=== PATIENT | female | born 1945 | race Caucasian/White ===

== ENCOUNTER 2020-01-05 08:17 | Emergency (ER) | payer MEDICARE, OTHER, SELFPAY ==
--- NOTE | 2020-01-05 08:24 | ED.GENADULT ---
HPI - General Adult General Chief complaint: Urogenital-Female Stated complaint: Possible UTI Time Seen by Provider: 01/05/20 08:45 Source: patient Mode of arrival: ambulatory Limitations: no limitations History of Present Illness HPI narrative: 74-year-old female patient presents to the [facility] with complaints of urinary symptoms that started yesterday. Patient states she has had pain and burning with urination, increased frequency and urgency as well as some bilateral low back pain. Denies any fevers, nausea, vomiting or diarrhea. Denies any abdominal pain. Related Data Home Medications Medication Instructions Recorded Confirmed amlodipine [Norvasc] 10 mg PO DAILY 01/05/20 01/05/20 lisinopril [Zestril] 40 mg PO DAILY 01/05/20 01/05/20 simvastatin [Zocor] 10 mg PO DAILY 01/05/20 01/05/20 Allergies Allergy/AdvReac Type Severity Reaction Status Date / Time No Known Allergies Allergy Verified 01/05/20 08:42 Review of Systems Review of Systems: Narrative: CONSTITUTIONAL: Denies fever, chills, or sweats. EYES: Denies visual changes, redness, or discharge. ENT: Denies rhinorrhea, congestion, sore throat, or otalgia. CARDIOVASCULAR: Denies chest pain, palpitations, or edema. RESPIRATORY: Denies cough or dyspnea. GASTROINTESTINAL: Denies abdominal pain, nausea, vomiting, or diarrhea. GENITOURINARY: Denies dysuria or hematuria. Positive pain with urination, urgency and frequency. SKIN: Denies rash or itching. MUSCULOSKELETAL: Denies back pain, joint pain, or myalgia. NEUROLOGIC: Denies headache, numbness, or weakness. PSYCHIATRIC: Denies anxiety or depression. PMFSH Social History Social History Gender identity (if verbalized by the patient): Female Comments At the time of my signature I agree with nursing past medical history, surgical, social, and family history. There is no relevant family history pertinent to the presenting complaint. Exam Narrative: Exam Narrative: GENERAL: Well-appearing, well-nourished, and in no acute distress. HEAD: Normocephalic, atraumatic. EYES: PERRLA and EOMI. ENT: Nares clear, no rhinorrhea or epistaxis. Mucous membranes moist. NECK: Supple. No lymphadenopathy CHEST: Clear to auscultation. No respiratory distress. HEART: Regular rate and rhythm. No murmur heard. Normal peripheral pulses. ABDOMEN: Soft, nontender, nondistended, normal active bowel sounds. No CVA tenderness on percussion. EXTREMITIES: Normal range of motion. No edema. SKIN: Warm, dry, no rash. NEURO: No focal deficits. Alert and oriented x3. Course Vital Signs Vital signs: Vital Signs Temperature 36.4 C 01/05/20 08:35 Pulse Rate 91 01/05/20 08:35 Respiratory Rate 16 01/05/20 08:35 Blood Pressure 137/75 01/05/20 08:35 Pulse Oximetry 98 01/05/20 08:35 Temperature 36.4 C 01/05/20 08:35 Pulse Rate 91 01/05/20 08:35 Respiratory Rate 16 01/05/20 08:35 Blood Pressure 137/75 01/05/20 08:35 Pulse Oximetry 98 01/05/20 08:35 Vital signs reviewed. Medical Decision Making Differential Diagnosis Differential Diagnosis: Differential diagnosis: Uncomplicated lower UTI, uncomplicated UTI, pyelonephritis Discussed with patient that there is some leukocytes on her urine dip that is suggestive a urinary tract infection and given her symptoms I think that we should go ahead and start her on antibiotics today. Discussed with patient that she should also increase her fluid intake and may take Tylenol ibuprofen as needed for the pain. Discussed with patient if her symptoms do not improve that she needs call and follow-up with her primary doctor. Discussed patient that we will send her urine off to the lab for culture and if the culture comes back requiring a different type of antibiotic we will call her and place her on a different type of antibiotics but if she does not hear from us she needs to continue taking the antibiotic as descri
[2020-01-05 08:35] VITALS: BP 137/75; PULSE 91; RESP 16; TEMP 36.4; O2SAT 98
== END 2020-01-05 08:53 | disposition home or self-care (01) ==
PROVIDERS: Emergency Provider Nurse Practitioner Family
DX: N30.00 Acute cystitis without hematuria (principal); E78.00 Pure hypercholesterolemia, unspecified; I10 Essential (primary) hypertension
CPT/HCPCS: 81003; 87086; 87088; 99213; G0463

== ENCOUNTER 2020-02-09 08:09 | Emergency (ER) | payer MEDICARE, OTHER, SELFPAY ==
[2020-02-09 08:24] VITALS: BP 127/80; PULSE 94; RESP 16; TEMP 36.1; O2SAT 97
--- NOTE | 2020-02-09 08:25 | ED.GENADULT ---
HPI - General Adult General Chief complaint: Skin/Abscess/Foreign Body Stated complaint: rash Time Seen by Provider: 02/09/20 08:26 Source: patient and RN notes reviewed Mode of arrival: ambulatory Limitations: no limitations History of Present Illness HPI narrative: 74-year-old female presents with complaints of intermittent diffused red, raised, and itching rash after yard work for the past 21 days. Cortisone-10 with some relief. Denies new changes in personal hygiene products or laundry detergent. No new foods or medications. No swelling, burning, bleeding, or drainage. Wendy recently loss her 02/07/2020. Denies fever, chills, headaches, weakness, fatigue, myalgia, facial swelling, or tongue swelling. Denies chest pain or dyspnea. Denies cough, rhinorrhea, congestion, sore throat, nausea, vomiting, abdominal pain, and diarrhea. Tolerating po intake well. Denies recent traveling. Denies concern for COVID-19 or exposures been home since [id number] order except for essential household needs and return home. Post-menopausal. Some parts of this dictation were generated by voice recognition software and may contain typographical and/or grammatical inaccuracies. Related Data Home Medications Medication Instructions Recorded Confirmed amlodipine [Norvasc] 10 mg PO DAILY 01/05/20 01/05/20 lisinopril [Zestril] 40 mg PO DAILY 01/05/20 01/05/20 simvastatin [Zocor] 10 mg PO DAILY 01/05/20 01/05/20 Allergies Allergy/AdvReac Type Severity Reaction Status Date / Time No Known Allergies Allergy Verified 01/05/20 08:42 Review of Systems Review of Systems: Narrative: CONSTITUTIONAL: Denies fever, chills, sweats. EYES: Denies visual changes, redness, discharge. ENT: Denies rhinorrhea, congestion, sore throat, otalgia. CARDIOVASCULAR: Denies chest pain, palpitations, edema. RESPIRATORY: Denies dyspnea, wheezing, cough. GASTROINTESTINAL: Denies abdominal pain, nausea, vomiting, diarrhea. GENITOURINARY: Denies dysuria, hematuria, abnormal discharge. SKIN: Complains of intermittent red, raised, and itching diffused rash. Denies drainage. MUSCULOSKELETAL: Denies acute back pain, joint pain, or myalgia. NEUROLOGIC: Denies numbness or focal weakness. PSYCHIATRIC: Denies anxiety or depression. All systems reviewed & are unremarkable except as noted in HPI and below. [facility] Past Medical History Medical History (Updated 02/10/20 @ 00:00 by Viet Jean) Hypercholesteremia Hypertension Surgical History Surgical History (Updated 02/09/20 @ 08:39 by KATHRYN Parrish) No significant past surgical history Family History Family History (Updated 02/09/20 @ 08:40 by KATHRYN Parrish) Father Hypertension Social History Social History (Updated 02/09/20 @ 08:49 by KATHRYN Parrish) Smoking status: Never smoker Second hand tobacco smoke exposure: No Alcohol intake: never Substance use: never Living arrangements: alone Additional living arrangements comments: Recently loss her spouse Occupation/Education: retired Gender identity (if verbalized by the patient): Female Comments At time of signature, agree with nurse past medical, surgical, social, and family history. There is no relevant family history pertinent to the presenting complaint. Exam Narrative: Exam Narrative: GENERAL: This is a well-nourished, well-developed patient, in no apparent distress. Talking in full sentences without deficit and ambulate with steady gait without dyspnea. HEAD: normocephalic, atraumatic. EYES: PERRL. Sclera clear/white. Vision is grossly intact. THROAT: Mucous membranes moist, posterior pharynx clear. NECK: Neck supple, non-tender without lymphadenopathy, masses or thyromegaly. CARDIOVASCULAR: Regular rate and rhythm without murmurs, gallops, or rubs. RESPIRATORY: Clear to auscultation. Breath sounds equal bilaterally. No wheezes, rales, or rhonchi. GASTROINTESTINAL: Abdomen
== END 2020-02-09 09:21 | disposition home or self-care (01) ==
PROVIDERS: Emergency Provider Nurse Practitioner Family
DX: L50.9 Urticaria, unspecified (principal); E78.00 Pure hypercholesterolemia, unspecified; I10 Essential (primary) hypertension
CPT/HCPCS: 99213; G0463

== ENCOUNTER 2020-03-08 14:01 | Emergency (ER) | payer MEDICARE, OTHER, SELFPAY ==
--- NOTE | ~2020-03-08 | XR_ITS ---
EXAMINATION: XR chest 2V 03/08/2020 14:28 INDICATION: Chest pain PROCEDURE: 2 view chest COMPARISON: No prior studies for comparison. FINDINGS: The lungs are clear. The cardiomediastinal silhouette is within normal limits. There are no pleural effusions. There is no pneumothorax suspected. Prominent fat pad right cardiophrenic ang le. IMPRESSION: 1: NO ACUTE CARDIOPULMONARY DISEASE. Reviewed, dictated and finalized at location A.
--- NOTE | 2020-03-08 14:03 | ED.CHESTPAIN ---
HPI - Chest Pain General Chief Complaint: Chest Pain Stated Complaint: Chest pain Time Seen by Provider: 03/08/20 14:03 Source: patient Mode of arrival: ambulatory Limitations: no limitations History of Present Illness HPI narrative: Patient is a 74-year-old female with a history of hypertension and hyperlipidemia who presents to the emergency department for evaluation of chest pain. Chest pain has been intermittent over the past month, today the patient has had 3 episodes of sharp, stabbing chest pain located in the center of her chest with radiation to her back which is why the frequency prompted her to come to the emergency department. Patient reports no severe chest pain currently, only a mild, dull aching pain in the center of her chest. At times, patient thought the pain was due to indigestion which is why she has not sought care at her primary care or in emergency department prior to this. Patient denies any associated symptoms such as fever, diaphoresis, dyspnea. Lightheadedness, dizziness, nausea, vomiting, jaw pain, arm pain, shoulder pain. No history of stress test. Patient has a primary care physician follow-up in 2 weeks. Patient's recent stressors include the of her earlier this month. Related Data Home Medications Medication Instructions Recorded Confirmed amlodipine [Norvasc] 10 mg PO DAILY 01/05/20 01/05/20 lisinopril [Zestril] 40 mg PO DAILY 01/05/20 01/05/20 simvastatin [Zocor] 10 mg PO DAILY 01/05/20 01/05/20 Allergies Allergy/AdvReac Type Severity Reaction Status Date / Time No Known Allergies Allergy Verified 03/08/20 14:08 Review of Systems Review of Systems: Narrative: CONSTITUTIONAL: Denies fever, chills, or sweats. EYES: Denies visual changes ENT: Denies rhinorrhea, congestion, sore throat, or otalgia. CARDIOVASCULAR: Reports chest pain, denies palpitations or edema RESPIRATORY: Denies cough or dyspnea. GASTROINTESTINAL: Denies abdominal pain, nausea, vomiting, or diarrhea. GENITOURINARY: Denies dysuria or hematuria. SKIN: Denies rash or itching. MUSCULOSKELETAL: Denies back pain, joint pain, or myalgia. NEUROLOGIC: Denies headache, numbness, or weakness. [facility] Past Medical History Medical History Hypercholesteremia Hypertension Osteoporosis Surgical History Surgical History No significant past surgical history Family History Family History Father Hypertension Social History Social History Smoking status: Never smoker Second hand tobacco smoke exposure: No Alcohol intake: never Substance use: never Additional living arrangements comments: Recently loss her spouse Gender identity (if verbalized by the patient): Female Exam Narrative: Exam Narrative: GENERAL: Awake, alert, conversant HEAD: Normocephalic, atraumatic. EYES: PERRLA and EOMI. ENT: Nares clear, no rhinorrhea or epistaxis. Mucous membranes moist. NECK: Supple. CHEST: No respiratory distress, breathing even and non labored HEART: Tachycardic rate, sinus rhythm ABDOMEN:Non distended, non tender EXTREMITIES: Normal range of motion. No edema. SKIN: Warm, dry, no rash. NEURO:No focal deficits. Alert and oriented x3 Course Vital Signs Vital signs: Vital Signs Temperature 36.6 C 03/08/20 14:04 Pulse Rate 110 H 03/08/20 14:04 Respiratory Rate 19 03/08/20 14:04 Blood Pressure 175/89 H 03/08/20 14:04 Pulse Oximetry 100 03/08/20 14:04 Temperature 36.6 C 03/08/20 14:04 Pulse Rate 78 03/08/20 18:03 Respiratory Rate 20 03/08/20 18:03 Blood Pressure 123/72 03/08/20 18:03 Pulse Oximetry 94 03/08/20 18:03 MDM - Chest Pain MDM Narrative Medical decision making narrative: Patient's EKG and labs are without significant high risk
[2020-03-08 14:04] VITALS: BP 175/89; PULSE 110; RESP 19; TEMP 36.6; O2SAT 100
--- NOTE | 2020-03-08 14:11 | ECG_ITS ---
Measurements Intervals [place] Rate: 104 P: 55 AL: 178 QRS: 54 QRSD: 93 T: 51 QT: 317 QTc: 418 Interpretive Statements SINUS TACHYCARDIA POSSIBLE LEFT ATRIAL ENLARGEMENT BASELINE ARTIFACT- I, II ABNORMAL ECG Electronically Signed On 03-09-2020 7:12:05 CDT by Luis Smith D.O.
[2020-03-08 14:13] VITALS: PULSE 93
[2020-03-08] MEDS: ASPIRIN 81 MG CHEWABLE TABLET 324 MG PO (14:17)
[2020-03-08 14:19] LABS: Basophils Percent Auto 0.6 % (0.2-1.2); Eosinophils Absolute Auto 0.2 K/mm3 (0-0.3); Eosinophils Percent Auto 4.5 % (0-4.4); Hematocrit 40.9 % (37.0-47.0); Hemoglobin 13.3 g/dL (12.0-15.0); Immature Granulocyte Absolute 0.01 K/mm3 (0.00-0.031); Immature Granulocyte Percent A 0.2 % (0-0.5); Lymphocytes Absolute Auto 1.27 K/mm3 (0.9-3.2); Mean Corpuscular HGB Conc 32.5 g/dl (32-36); Mean Corpuscular Hemoglobin 30.4 pg (26-34); Mean Corpuscular Volume 93.4 fl (80-100); Mean Platelet Volume 9.2 fl (7.4-10.4); Monocytes Absolute Auto 0.3 K/mm3 (0.1-0.6); Monocytes Percent Auto 6.8 % (2.6-8.5); Neutrophils Absolute Auto 2.9 K/mm3 (1.3-6.7); Neutrophils Percent Auto 60.9 % (45.5-73.1); Platelet Count Result 247 k/mm3 (150-375); Red Blood Count 4.38 M/mm3 (4.2-5.4); Red Cell Distribution Width 12.6 % (11.5-14.5); White Blood Count 4.7 K/mm3 (4.5-10.0)
[2020-03-08 14:28] LABS: INR 0.9; Prothrombin Time 12.1 Seconds (11.1-14.7)
[2020-03-08 14:29] LABS: Partial Thromboplastin Time 28.1 SECONDS (22.3-36.8)
[2020-03-08 14:31] LABS: Blood Urea Nitrogen 15 mg/dL (7-17); Calcium 9.5 mg/dL (8.4-10.2); Carbon Dioxide 24 mmol/L (22-30); Chloride 104 mmol/L (98-107); Estimated CRCL calculation 49 ml/min; Estimated Glomerular Filt Rate > 60; Glucose 114 mg/dL (65-105); Potassium 3.9 mmol/L (3.4-5.0); Sodium 138 mmol/L (137-145)
[2020-03-08 14:35] LABS: D Dimer 0.26 ug/mL (<0.48)
[2020-03-08 14:43] LABS: NT Pro B Type Natriuretic Pept 66 PG/ML (5-100); Troponin I < 0.012 ng/mL (0.000-0.034)
[2020-03-08] MEDS: BELLADONNA ALK/PHENOB ELIX 10 ML, MAG HYDROX/ALUMINUM HYD/SIMETH 30 ML, LIDOCAINE HCL 2... PO (15:18)
[2020-03-08 15:29] VITALS: BP 152/75; PULSE 81; RESP 16; O2SAT 97
[2020-03-08 16:38] VITALS: BP 123/68; PULSE 72; RESP 12; O2SAT 96
[2020-03-08 17:46] LABS: Troponin I < 0.012 ng/mL (0.000-0.034)
[2020-03-08 18:03] VITALS: BP 123/72; PULSE 78; RESP 20; O2SAT 94
[2020-03-08 18:41] VITALS: BP 123/72; PULSE 94; RESP 20; O2SAT 94
== END 2020-03-08 18:43 | disposition home or self-care (01) ==
PROVIDERS: Emergency Provider Emergency Medicine
DX: R07.89 Other chest pain (principal); I10 Essential (primary) hypertension; E78.5 Hyperlipidemia, unspecified; M81.0 Age-related osteoporosis without current pathological fracture; R00.0 Tachycardia, unspecified; R94.31 Abnormal electrocardiogram [ECG] [EKG]
CPT/HCPCS: 36415; 71046; 80048; 83880; 84484; 85025; 85380; 85610; 85730; 93005; 99284; A9270

== ENCOUNTER → 2020-06-29 12:12 | Outpatient (CLI) | payer MEDICARE, OTHER, SELFPAY ==
--- NOTE | ~2020-06-29 | MM_ITS ---
EXAMINATION: MM screening [facility] BI w nneka HISTORY: Screening mammogram TECHNIQUE: Craniocaudal and mediolateral oblique 3-D tomosynthesis images were obtained and synthetic 2-D images were generated. CAD analysis was submitted and interpreted. COMPARISON: 01/22/2019, 08/23/2016, 08/06/2015 bilateral digital screening mammogram examinations BREAST PARENCHYMAL COMPOSITION: There are scattered areas of fibroglandular density. FINDINGS: There is no evidence of suspicious mass, calcification, or architectural distortion to sugg est malignancy in either breast. There has been no suspicious interval change. IMPRESSION: 1. No mammographic evidence of malignancy. 2. Recommend routine screening mammography in one year. BI-RADS Category 1: Negative Reviewed, dictated and finalized at location A.
== END ==
PROVIDERS: PCP General Practice; Visit Provider General Practice
DX: Z12.31 Encounter for screening mammogram for malignant neoplasm of breast (principal)
CPT/HCPCS: 77063; 77067

== ENCOUNTER 2021-03-11 09:25 | Emergency (ER) | payer MEDICARE, OTHER, SELFPAY ==
[2021-03-11 09:34] VITALS: BP 125/58; PULSE 98; RESP 16; TEMP 35.7; O2SAT 99
--- NOTE | 2021-03-11 09:37 | ED.GENADULT ---
HPI - General Adult General Chief complaint: Back Pain/Injury Stated complaint: Back Pain Time Seen by Provider: 03/11/21 09:37 Source: patient and RN notes reviewed Mode of arrival: ambulatory Limitations: no limitations History of Present Illness HPI narrative: 75-year-old female presents with complaints of right lower back pain radiating down right lateral leg for the past 3 days. Wendy reports increasing steady RT lower back. Warm baths, heating pad, Advil 200mg last 08:00AM on 03/11/21, and Aleve the night of 03/10/21 without relief. ?History of lower back pain. Denies new injuries or falls. ?Denies numbness or tingling. ?Denies fever. ?No upper or lower extremity pain or weakness. Exacerbating factors consist of prolonged standing and sitting. ?Denies nausea, vomiting, or abdominal pain. Tolerating po intake well. Denies problems with urinating or having a bowel movement, LBM on 03/10/2021 per patient and normal. ?No flank pain or hematuria. The patient reports she have not been diagnosed with COVID-19. The patient reports she received 2 [employer] COVID-19 vaccines. The patient reports she is not waiting for the results of a COVID-19 lab test. The patient reports she do not have chills, weakness, or fatigue. The patient reports she do not have a new or worsening cough or shortness of breath. Denies chest pain. The patient reports she do not have any rhinorrhea, congestion, sore throat, loss of taste or smell, and diarrhea. Denies recent traveling. Denies concerns for COVID-19 or exposures. At this time, patient is not suspected of having COVID-19. Some parts of this dictation were generated by voice recognition software and may contain typographical and/or grammatical inaccuracies. Related Data Home Medications Medication Instructions Recorded Confirmed lisinopril [Zestril] 40 mg PO DAILY 01/05/20 03/11/21 Allergies Allergy/AdvReac Type Severity Reaction Status Date / Time No Known Allergies Allergy Verified 03/11/21 09:37 Review of Systems Review of Systems: Narrative: CONSTITUTIONAL: Denies fever, chills, sweats. EYES: Denies visual changes, redness, discharge. ENT: Denies rhinorrhea, congestion, sore throat, otalgia. CARDIOVASCULAR: Denies chest pain, palpitations, edema. RESPIRATORY: Denies dyspnea, wheezing, cough. GASTROINTESTINAL: Denies abdominal pain, nausea, vomiting, diarrhea. GENITOURINARY: Denies dysuria, hematuria, abnormal discharge. SKIN: Denies rash or itching. MUSCULOSKELETAL: Complains of right lower back pain radiating down right lateral leg. Denies joint pain or myalgia. NEUROLOGIC: Denies numbness or focal weakness. PSYCHIATRIC: Denies anxiety or depression. All systems reviewed & are unremarkable except as noted in HPI and below PMFSH Past Medical History Medical History (Updated 03/11/21 @ 09:48 by KATHRYN Parrish) Hypercholesteremia Hypertension Osteoporosis Surgical History Surgical History No significant past surgical history Family History Family History (Updated 03/11/21 @ 10:10 by KATHRYN Parrish) Father Hypertension Mother , Wendy reports mother would not go to the MD Unknown family medical history Social History Social History (Updated 03/11/21 @ 10:07 by KATHRYN Parrish) Social History: Smoking status: Never smoker Tobacco type: cigarettes Second hand tobacco smoke exposure: No Alcohol intake: never Substance use: never Substance use type: does not use Living arrangements: alone Additional living arrangements comments: Recently loss her spouse Occupation/Education: retired Gender identity (if verbalized by the patient): Female Sexual Orientation (if Verbalized by the Patient): Straight or Heterosexual Comments At time of signature, agree with nurse past medical, surgical, social, and family history. There is rele
[2021-03-11] MEDS: KETOROLAC (*BKC) 60 MG/2 ML VIAL IM (09:51)
--- NOTE | 2021-03-11 09:57 | PC.NURSE ---
Pt reports her last dose of Advil 200mg was approx 08:47 this morning, [employer]OR aware.
== END 2021-03-11 10:06 | disposition home or self-care (01) ==
PROVIDERS: Emergency Provider Nurse Practitioner Family; PCP Family Medicine
DX: M54.41 Lumbago with sciatica, right side (principal); E78.00 Pure hypercholesterolemia, unspecified; I10 Essential (primary) hypertension; M81.0 Age-related osteoporosis without current pathological fracture
CPT/HCPCS: 96372; 99213; G0463; J1885

== ENCOUNTER 2021-06-03 08:28 | Outpatient (CLI) | payer MEDICARE, OTHER, SELFPAY ==
[2021-06-03 09:12] LABS: Cholesterol 175 mg/dL (0-200); HDL Direct 66 mg/dL; Triglycerides 111 mg/dL (<150)
[2021-06-03 09:22] LABS: LDL Cholesterol Direct 75 mg/dL
== END 2021-06-03 08:29 | disposition home or self-care (01) ==
PROVIDERS: PCP Family Medicine; Visit Provider Family Medicine
DX: E78.2 Mixed hyperlipidemia (principal)
CPT/HCPCS: 36415; 80061

== ENCOUNTER → 2021-07-07 12:07 | Outpatient (CLI) | payer MEDICARE, OTHER, SELFPAY ==
--- NOTE | ~2021-07-07 | MM_ITS ---
EXAMINATION: MM screening [facility] BI w nneka HISTORY: Screening TECHNIQUE: Craniocaudal and mediolateral oblique 3-D tomosynthesis images were obtained and synthetic 2-D images were generated. CAD analysis was submitted and interpreted. COMPARISON: Comparison to multiple prior studies sequentially, with oldest reviewed study dated 04/2013. BREAST PARENCHYMAL COMPOSITION: There are scattered areas of fibroglandular density. FINDINGS: There is no evidence of suspicious mass, calcification, or architectural distortion to sugg est malignancy in either breast. There has been no suspicious interval change. IMPRESSION: 1. No mammographic evidence of malignancy. 2. Recommend routine screening mammography in one year. BI-RADS Category 1: Negative Reviewed, dictated and finalized at location A.
== END ==
PROVIDERS: PCP Family Medicine; Visit Provider Family Medicine
DX: Z12.31 Encounter for screening mammogram for malignant neoplasm of breast (principal)
CPT/HCPCS: 77063; 77067

== ENCOUNTER → 2021-08-31 10:15 | Outpatient (CLI) | payer MEDICARE, OTHER, SELFPAY ==
--- NOTE | ~2021-08-31 | DEXA_ITS ---
Bone Density Report Name: JENNY SKINNER Age: 75 Sex: Female Ethnicity: White Date of : 1945 Indication: osteopenia; height loss; postmenopausal Referring Provider: LUÍS GARCÍA Study: Bone densitometry was performed. Exam Date: August 31, 2021 Accession number: [id number] Bone Density: Region BMD T-score Z-score Classification AP Spine (L1, L2, L3) 0.874 -1.3 1.0 Osteopenia Femoral Neck (Left) 0.642 -1.9 0.2 Osteopenia Total Hip (Left) 0.791 -1.2 0.5 Osteopenia Femoral Neck (Right) 0.666 -1.6 0.4 Osteopenia Total Hip (Right) 0.822 -1.0 0.8 Normal Total Hip Mean 0.807 -1.1 0.7 Osteopenia World Health Organization criteria for BMD impression classify patients as: Normal (T-score at or above -1.0), Osteopenia (T-score between -1.0 and -2.5), or Osteoporosis (T-score at or below -2.5). 10-year Fracture Risk(1): Major Osteoporotic Fracture 12% Hip Fracture 2.8% Reported Risk Factors: [place] (), Neck BMD=0.642, BMI=23.3 (1) FRAX(R) Version 3.08. Fracture probability calculated for an untreated patient. Fracture probability may be lower if the patient has received treatment. Previous Exams: Region Exam Age BMD T-score BMD Change BMD Change Date g/cm2 vs Baseline vs Previous AP Spine(L1, L2, L3) 08/31/2021 75 0.874 -1.3 -0.010 0.020 04/05/2019 73 0.854 -1.5 -0.030* -0.024* 07/05/2012 66 0.878 -1.3 -0.006 0.037* 04/12/2010 64 0.841 -1.6 -0.043* -0.043* 10/17/2008 63 0.885 -1.2 0.000 0.030* 03/07/2007 61 0.854 -1.5 -0.030* -0.030* 12/22/2004 59 0.884 -1.2 Total Hip(Left) 08/31/2021 75 0.791 -1.2 -0.157* -0.022 04/05/2019 73 0.814 -1.1 -0.134* -0.064* 07/05/2012 66 0.878 -0.5 -0.070* 0.076* 04/12/2010 64 0.801 -1.2 -0.146* -0.017 10/17/2008 63 0.818 -1.0 -0.130* 0.015 03/07/2007 61 0.803 -1.1 -0.144* -0.144* 12/22/2004 59 0.948 0.0 Total Hip(Right) 08/31/2021 75 0.822 -1.0 -0.124* -0.004 04/05/2019 73 0.826 -0.9 -0.120* -0.045* 07/05/2012 66 0.871 -0.6 -0.075* 0.055* 04/12/2010 64 0.816 -1.0 -0.130* -0.016 10/17/2008 63 0.832 -0.9 -0.114* 0.011 03/07/2007 61 0.821 -1.0 -0.125* -0.125* 12/22/2004 59 0.946 0.0 *Denotes signi
== END ==
PROVIDERS: PCP Family Medicine; Visit Provider Nurse Practitioner Gerontology
DX: Z78.0 Asymptomatic menopausal state (principal); M85.88 Other specified disorders of bone density and structure, other site; M85.852 Other specified disorders of bone density and structure, left thigh; M85.851 Other specified disorders of bone density and structure, right thigh
CPT/HCPCS: 77080

== ENCOUNTER 2021-09-12 08:14 | Emergency (ER) | payer MEDICARE, OTHER, SELFPAY ==
--- NOTE | 2021-09-12 08:20 | ED.SKABFB ---
HPI - Skin/Abscess/Foreign Bdy General Chief complaint: Skin/Abscess/Foreign Body Stated complaint: RASH Time Seen by Provider: 09/12/21 08:20 Source: patient and RN notes reviewed History of Present Illness HPI narrative: Patient is a 75-year-old female presents the urgent care with complaints of an itchy rash to bilateral upper arms and upper back. Patient states is been there for months and her PCP put her on ketoconazole and also told her to take a daily Zyrtec. Patient states that it does not seem to be helping . Denies of any diffuse spread of the rash. Patient denies any new lotions, detergents, creams. Patient states that she has been using [place] butter which is not unusual for her normal daily regimen. No other acute complaints. No acute distress noted. Patient read the plan of care. Some parts of this dictation were generated by voice recognition software and may contain typographical and/or grammatical inaccuracies. Related Data Home Medications Medication Instructions Recorded Confirmed cetirizine [Zyrtec] 10 mg PO DAILY 09/12/21 09/12/21 Allergies Allergy/AdvReac Type Severity Reaction Status Date / Time No Known Allergies Allergy Verified 08/26/21 07:17 Review of Systems Review of Systems: CONSTITUTIONAL: Denies fever, chills, or sweats. EYES: Denies visual changes, redness, or discharge. ENT: Denies rhinorrhea, congestion, sore throat, or otalgia. CARDIOVASCULAR: Denies chest pain, palpitations, or edema. RESPIRATORY: Denies cough or dyspnea. GASTROINTESTINAL: Denies abdominal pain, nausea, vomiting, or diarrhea. GENITOURINARY: Denies dysuria or hematuria. SKIN: Reports of itchy rash to the upper back and upper arms MUSCULOSKELETAL: Denies back pain, joint pain, or myalgia. NEUROLOGIC: Denies headache, numbness, or weakness. All other systems reviewed are negative, except as documented in HPI. [facility] Past Medical History Medical History (Updated 09/12/21 @ 08:34 by KATHRYN Zazueta) Hypercholesteremia Hypertension Osteoporosis Surgical History Surgical History No significant past surgical history Family History Family History Father Hypertension Mother , Wendy reports mother would not go to the MD Unknown family medical history Social History Social History Social History: Smoking status: Never smoker Tobacco type: cigarettes Second hand tobacco smoke exposure: No Alcohol intake: never Substance use: never Substance use type: does not use Additional living arrangements comments: Recently loss her spouse Gender identity (if verbalized by the patient): Female Sexual Orientation (if Verbalized by the Patient): Straight or Heterosexual Comments At the time of my signature, I reviewed and agree with the nursing past medical, surgical, social, and family history. There is no relevant family history pertinent to the patient complaint. Exam Narrative: GENERAL: This is a well-nourished, well-developed patient, in no apparent distress. HEAD: normocephalic, atraumatic. EYES: PERRL. Sclera clear/white. Vision is grossly intact. EARS: External ears normal NOSE: External nose normal with no obvious nasal discharge, nares without redness, no rhinorrhea. THROAT: Mucous membranes moist NECK: Neck supple CARDIOVASCULAR: Regular rate and rhythm without murmurs, gallops, or rubs. RESPIRATORY: Clear to auscultation. Breath sounds equal bilaterally. No wheezes, rales, or rhonchi. SKIN: Very mild dry dermatitis noted to the mid upper back and right upper arm without erythema or vesicular lesions NEURO: awake, alert, and oriented to person, place and time. There were no obvious focal neurologic abnormalities. EXTREMITIES: No clubbing, cyanosis, or edema. Course
[2021-09-12 08:23] VITALS: BP 128/100; PULSE 88; RESP 16; TEMP 35.7; O2SAT 98
== END 2021-09-12 08:35 | disposition home or self-care (01) ==
PROVIDERS: Emergency Provider Nurse Practitioner Family; PCP Family Medicine
DX: L25.9 Unspecified contact dermatitis, unspecified cause (principal); E78.00 Pure hypercholesterolemia, unspecified; I10 Essential (primary) hypertension; M81.0 Age-related osteoporosis without current pathological fracture
CPT/HCPCS: 99213; G0463

== ENCOUNTER 2021-12-15 09:32 | Emergency (ER) | payer MEDICARE, OTHER, SELFPAY ==
[2021-12-15 09:41] VITALS: BP 123/74; PULSE 97; RESP 16; TEMP 35.8; O2SAT 99
--- NOTE | 2021-12-15 09:47 | ED.URI ---
HPI - URI/Sore Throat General Chief Complaint: Upper Respiratory Infection Stated Complaint: uri Time Seen by Provider: 12/15/21 09:48 Source: patient Mode of arrival: ambulatory Limitations: no limitations History of Present Illness HPI Narrative: 76 yo F presents with c/o sinus pressure/congestion, PND, intermittent runny nose for several weeks. Uses antihistamine and flonase but not consistently. A few days ago was talking on the phone and realized she could not hear out of L ear. All systems reviewed and negative except as noted above. Related Data Home Medications Medication Instructions Recorded Confirmed cetirizine [Zyrtec] 10 mg PO DAILY 09/12/21 12/15/21 Allergies Allergy/AdvReac Type Severity Reaction Status Date / Time No Known Allergies Allergy Verified 12/15/21 09:48 Review of Systems Review of Systems: CONSTITUTIONAL: Denies fever, chills, or sweats. EYES: Denies visual changes, redness, or discharge. ENT: Reports rhinorrhea, congestion,, sinus pressure, sore throat and pressure to bilateral ears and decreased hearing to left ear. CARDIOVASCULAR: Denies chest pain, palpitations, or edema. RESPIRATORY: Denies cough or dyspnea. GASTROINTESTINAL: Denies abdominal pain, nausea, vomiting, or diarrhea. GENITOURINARY: Denies dysuria or hematuria. SKIN: Denies rash or itching. MUSCULOSKELETAL: Denies back pain, joint pain, or myalgia. NEUROLOGIC: Denies headache, numbness, or weakness. PSYCHIATRIC: Denies anxiety or depression. All other systems reviewed are negative, except as documented in HPI. [facility] Past Medical History Medical History (Updated 12/15/21 @ 10:03 by Frances Sunshine NP) Hypercholesteremia Hypertension Osteoporosis Surgical History Surgical History No significant past surgical history Family History Family History Father Hypertension Mother , Wendy reports mother would not go to the MD Unknown family medical history Social History Social History Social History: Smoking status: Never smoker Tobacco type: cigarettes Second hand tobacco smoke exposure: No Alcohol intake: never Substance use: never Substance use type: does not use Additional living arrangements comments: Recently loss her spouse Gender identity (if verbalized by the patient): Female Sexual Orientation (if Verbalized by the Patient): Straight or Heterosexual Comments At time of signature, agree with nursing past medical, surgical, social and family history. There is no relevant family history pertinent to the presenting complaint. Exam Narrative: GENERAL: This is a well-nourished, well-developed patient, in no apparent distress. HEAD: normocephalic, atraumatic. EYES: PERRL. Sclera clear/white. Vision is grossly intact. EARS: Cerumen impacted to bilateral ear canals. Irrigated with warm water and peroxide, bilateral TMs normal. NOSE: External nose normal with clear nasal drainage, mild erythema to both nares, no sinus pressure. THROAT: Mucous membranes moist, mild erythema with postnasal drainage. NECK: Neck supple, non-tender without lymphadenopathy, masses or thyromegaly. CARDIOVASCULAR: Regular rate and rhythm without murmurs, gallops, or rubs. RESPIRATORY: Clear to auscultation. Breath sounds equal bilaterally. No wheezes, rales, or rhonchi. GASTROINTESTINAL: Abdomen soft, non-tender, nondistended. Bowel sounds are active. No hepato-splenomegaly, or palpable masses. No guarding. SKIN: warm, Dry, intact with no suspicious lesions or rash, good texture and turgor. NEURO: awake, alert, and oriented to person, place and time. There were no obvious focal neurologic abnormalities. EXTREMITIES: No joint tenderness, effusion, or edema noted. No calf tenderness. Negative Homans sign bi
== END 2021-12-15 10:04 | disposition home or self-care (01) ==
PROVIDERS: Emergency Provider Nurse Practitioner Family; PCP Family Medicine
DX: J01.90 Acute sinusitis, unspecified (principal); H61.23 Impacted cerumen, bilateral; E78.00 Pure hypercholesterolemia, unspecified; I10 Essential (primary) hypertension; M81.0 Age-related osteoporosis without current pathological fracture
CPT/HCPCS: 69209; 99213; G0463

== ENCOUNTER → 2022-09-14 11:32 | Outpatient (CLI) | payer MEDICARE, OTHER, SELFPAY ==
--- NOTE | ~2022-09-14 | MM_ITS ---
EXAMINATION: MM screening [facility] BI w nneka HISTORY: Screening mammogram TECHNIQUE: Craniocaudal and mediolateral oblique 3-D tomosynthesis images were obtained and synthetic 2-D images were generated. CAD analysis was submitted and interpreted. COMPARISON: 07/07/2021, 06/29/2020, 01/14/2019 BREAST PARENCHYMAL COMPOSITION: The breasts are heterogeneously dense, which may obscure small masses . FINDINGS: No suspicious mass, calcification, or architectural distortion are identified in either barbara ast to suggest malignancy. There has been no suspicious interval change. IMPRESSION: 1. No mammographic evidence of malignancy. 2. Recommend routine screening mammography in one year. BI-RADS Category 1: Negative Reviewed, dictated and finalized at location A. C ACOUSTIC ANALYST
== END ==
PROVIDERS: PCP Family Medicine; Visit Provider Obstetrics & Gynecology Gynecology
DX: Z12.31 Encounter for screening mammogram for malignant neoplasm of breast (principal)
CPT/HCPCS: 77063; 77067

== ENCOUNTER 2022-12-07 07:46 | Outpatient (CLI) | payer MEDICARE, OTHER, SELFPAY ==
[2022-12-07 08:08] LABS: Basophils Absolute Auto 0.1 K/mm3 (0.0-0.1); Basophils Percent Auto 1.1 % (0.2-1.2); Eosinophils Absolute Auto 0.2 K/mm3 (0-0.3); Eosinophils Percent Auto 5.1 % (0-4.4); Hematocrit 41.9 % (37.0-47.0); Hemoglobin 13.7 g/dL (12.0-15.0); Immature Granulocyte Absolute 0.01 K/mm3 (0.00-0.031); Immature Granulocyte Percent A 0.2 % (0-0.5); Lymphocytes Absolute Auto 1.36 K/mm3 (0.9-3.2); Lymphocytes Percent Auto 29.1 % (18.3-44.2); Mean Corpuscular HGB Conc 32.7 g/dl (32-36); Mean Corpuscular Volume 94.8 fl (80-100); Mean Platelet Volume 8.9 fl (7.4-10.4); Monocytes Absolute Auto 0.4 K/mm3 (0.1-0.6); Monocytes Percent Auto 8.5 % (2.6-8.5); Neutrophils Absolute Auto 2.6 K/mm3 (1.3-6.7); Platelet Count Result 270 k/mm3 (150-375); Red Blood Count 4.42 M/mm3 (4.2-5.4); Red Cell Distribution Width 13.1 % (11.5-14.5); White Blood Count 4.7 K/mm3 (4.5-10.0)
[2022-12-07 08:21] LABS: Alanine Aminotransferase 18 U/L (6-35); Albumin Level 4.6 g/dL (3.5-5.1); Alkaline Phosphatase 73 U/L (38-126); Anion Gap 5 mmol/L (8-16); Aspartate Amino Transferase 27 U/L (14-36); Bilirubin,Total 0.4 mg/dL (0.2-1.3); Blood Urea Nitrogen 15 mg/dL (7-17); Calcium 9.4 mg/dL (8.4-10.2); Carbon Dioxide 31 mmol/L (22-30); Chloride 102 mmol/L (98-107); Cholesterol 187 mg/dL (0-200); Estimated Glomerular Filt Rate > 60; Glucose 103 mg/dL (65-110); HDL Direct 71 mg/dL; Potassium 4.2 mmol/L (3.4-5.0); Sodium 138 mmol/L (137-145); Triglycerides 87 mg/dL (<150)
[2022-12-07 08:31] LABS: LDL Cholesterol Direct 80 mg/dL
[2022-12-10 23:02] LABS: Vitamin D 1,25 (OH)2 Total 51 pg/mL (18-72); Vitamin D2 1,25 (OH)2 17 pg/mL; Vitamin D3 1,25 (OH)2 34 pg/mL
== END 2022-12-07 07:47 | disposition home or self-care (01) ==
PROVIDERS: PCP Family Medicine; Visit Provider Family Medicine
DX: E78.2 Mixed hyperlipidemia (principal); E55.9 Vitamin D deficiency, unspecified; I10 Essential (primary) hypertension
CPT/HCPCS: 36415; 80053; 80061; 82652; 85025

== ENCOUNTER 2023-01-20 08:10 | Emergency (ER) | payer MEDICARE, OTHER, SELFPAY ==
[2023-01-20 08:18] VITALS: BP 135/70; PULSE 87; RESP 18; TEMP 36.4; O2SAT 100
--- NOTE | 2023-01-20 08:34 | ED.BACK ---
HPI - Back Pain/Injury General Chief Complaint: Back Pain/Injury Stated Complaint: rigt side back/leg pain Time Seen by Provider: 01/20/23 08:23 Source: patient Mode of arrival: ambulatory Limitations: no limitations History of Present Illness HPI Narrative: Patient presents today complaining of right low back pain radiating to the right anterior thigh x2 days it has worsened since last night. She also reports some tingling to the right eye. Denies tingling or numbness to the genitalia. Denies any loss of bowel or bladder control. She currently rates her pain 4/10 and has been taking Advil and using a heating pad with very mild relief. States she has had an episode of sciatica a few years ago and per her chart she was treated with prednisone and methocarbamol. Related Data Home Medications Medication Instructions Recorded Confirmed cetirizine 10 mg tablet (Zyrtec) 10 mg PO DAILY 09/12/21 01/20/23 Allergies Allergy/AdvReac Type Severity Reaction Status Date / Time No Known Allergies Allergy Verified 01/20/23 08:15 Review of Systems Review of Systems: CONSTITUTIONAL: Denies body aches, fever, chills, or sweats. EYES: Denies visual changes, redness, or discharge. ENT: Denies rhinorrhea, congestion, sore throat, or otalgia. CARDIOVASCULAR: Denies chest pain, palpitations, or edema. RESPIRATORY: Denies cough or dyspnea. GASTROINTESTINAL: Denies abdominal pain, nausea, vomiting, or diarrhea. GENITOURINARY: Denies dysuria or hematuria. SKIN: Denies rash, itching, or wounds. MUSCULOSKELETAL: Denies joint pain. + low back pain, right thigh pain NEUROLOGIC: Denies headache, numbness, or weakness.+ tingling to the right thigh PSYCH: Denies depression or anxiety. [facility] Past Medical History Medical History (Updated 01/20/23 @ 08:42 by Zahra Hzael, KATHRYN, BC) Hypercholesteremia Hypertension Osteoporosis Surgical History Surgical History No significant past surgical history Family History Family History Father Hypertension Mother , Wendy reports mother would not go to the MD Unknown family medical history Social History Social History Social History: Smoking status: Never smoker Tobacco type: cigarettes Second hand tobacco smoke exposure: No Alcohol intake: never Substance use: never Substance use type: does not use Living arrangements: alone Occupation/Education: retired Gender identity (if verbalized by the patient): Female Sexual Orientation (if Verbalized by the Patient): Straight or Heterosexual Comments At time of signature, I have reviewed and agree with nursing past medical, surgical, social and family history unless otherwise noted. Please see nursing chart for further information. There is no relevant family history pertinent to the presenting complaint Exam Narrative: GENERAL: Well-appearing, well-nourished, and in no acute distress. HEAD: Normocephalic, atraumatic. EYES: EOMI. No redness or drainage. Conjunctivae normal. ENT: Mucous membranes pink and moist. NECK: Normal AROM. CHEST: No respiratory distress. MUSCULOSKELETAL: No bony tenderness of the spine. Right lower paraspinal muscle tenderness. This does not extend to the buttocks. Patient also has right anterior and lateral thigh tenderness. Distal sensation intact. Saddle sensation intact. capillary refill normal. Pedal pulses normal. Foot push and pulls equal and strong. Patellar reflexes 3+. EXTREMITIES: Normal range of motion. No edema. SKIN: Warm, dry, no rash. Capillary refill normal. Normal skin turgor. NEURO: No focal deficits. Alert and oriented x3. Gait steady. PSYCH: Normal affect. No signs of depression or anxiety. Course Course Level of Care: Express Care Visit Vital
== END 2023-01-20 09:03 | disposition home or self-care (01) ==
PROVIDERS: Emergency Provider Nurse Practitioner; PCP Family Medicine
DX: S39.012A Strain of muscle, fascia and tendon of lower back, initial encounter (principal); M54.16 Radiculopathy, lumbar region; I10 Essential (primary) hypertension; X58.XXXA Exposure to other specified factors, initial encounter
CPT/HCPCS: 99213; G0463

== ENCOUNTER 2023-02-04 09:03 | Emergency (ER) | payer MEDICARE, OTHER, SELFPAY ==
--- NOTE | 2023-02-04 09:43 | ED.BACK ---
HPI - Back Pain/Injury General Chief Complaint: Back Pain/Injury Stated Complaint: Right Waist/Leg Pain Time Seen by Provider: 02/04/23 09:40 Source: patient, RN notes reviewed and old records reviewed Mode of arrival: ambulatory Limitations: no limitations History of Present Illness HPI Narrative: 77-year-old female presents to the [facility] with right low back pain, buttock pain radiating into the right lateral by. States it has been going on since Monday, 3 days. Has a history of sciatica, was seen 3 weeks ago with the same symptoms, diagnosed with radiculopathy. Did not follow-up with primary care provider. Onset (ago): day(s) (3) Related Data Home Medications Medication Instructions Recorded Confirmed cetirizine 10 mg tablet (Zyrtec) 10 mg PO DAILY 09/12/21 02/04/23 Allergies Allergy/AdvReac Type Severity Reaction Status Date / Time No Known Allergies Allergy Verified 02/04/23 09:13 Review of Systems Review of Systems: All systems reviewed & are unremarkable except as noted in HPI and below Constitutional: Constitutional: Reports no additional constitutional complaints Eyes: Eyes: Reports no additional eye complaints ENT: Reports system reviewed and no additional complaints, except as documented Cardiovascular: Cardiovascular: Reports no additional cardiovascular complaints, Denies chest pain and Denies dyspnea Respiratory: Respiratory: Reports no additional respiratory complaints, Denies chest congestion, Denies cough and Denies dyspnea Gastrointestinal: Gastrointestinal: Reports no additional gastrointestinal complaints, Denies abdominal pain, Denies nausea and Denies vomiting Musculoskeletal: Musculoskeletal: Reports as per HPI Integumentary/Breasts: Skin/Breast: Reports system reviewed and no additional complaints, except as docu Neurologic: Reports system reviewed and no additional complaints, except as documented Psychiatric: Psychiatric: Reports no additional psychiatric complaints Allergic/Immunologic: Allergic/Immunologic: Reports no additional allergic/immunologic complaints [facility] Past Medical History Medical History (Updated 02/04/23 @ 10:02 by Bruna Cross APRN) Hypercholesteremia Hypertension Osteoporosis Surgical History Surgical History No significant past surgical history Family History Family History Father Hypertension Mother , Wendy reports mother would not go to the MD Unknown family medical history Social History Social History Social History: Smoking status: Never smoker Tobacco type: cigarettes Second hand tobacco smoke exposure: No Alcohol intake: never Substance use: never Substance use type: does not use Living arrangements: alone Occupation/Education: retired Gender identity (if verbalized by the patient): Female Sexual Orientation (if Verbalized by the Patient): Straight or Heterosexual Comments At the time of my signature, I reviewed and agree with the nursing past medical, surgical, social, and family history. There is no relevant family history pertinent to the patient complaint. Exam Const: General: cooperative, healthy appearing, comfortable, no acute distress, well developed, alert and well nourished Nutritional Appearance: well nourished Orientation/consciousness: patient oriented x3 Limitations: no limitations HENMT: Head: normal to inspection Ears: hearing grossly normal bilaterally and external ears normal Face/Nose/Sinus: Normal external nose present, Normal nares present, Normal nasal mucous membranes and turbinates present and normal facial exam Face and sinus: normal facial exam Mouth: Yes lip normal and Yes moist mucous membranes Eyes: General: appearance normal, both eyes and all related structures Alignment an
[2023-02-04 09:50] VITALS: BP 120/73; PULSE 98; RESP 18; TEMP 36.5; O2SAT 99
== END 2023-02-04 10:10 | disposition home or self-care (01) ==
PROVIDERS: Emergency Provider Nurse Practitioner; PCP Family Medicine
DX: M54.16 Radiculopathy, lumbar region (principal); I10 Essential (primary) hypertension
CPT/HCPCS: 99213; G0463

== ENCOUNTER 2023-06-02 11:43 | Outpatient (CLI) | payer MEDICARE, OTHER, SELFPAY ==
--- NOTE | ~2023-06-02 | XR_ITS ---
EXAMINATION: XR hip BI 2V w AP pelvis DATE: 06/02/2023 12:03 INDICATION: Hip pain. TECHNIQUE: An anteroposterior view of the pelvis and 2 views of each hip were obtained. COMPARISON: None. FINDINGS: There is lumbar levocurvature. There is severe lower lumbar spondylosis. No fracture. There is mild osteoarthritis of the hips. IMPRESSION: 1. Mild osteoarthritis of the hips. Reviewed, dictated and finalized at location A.
--- NOTE | ~2023-06-02 | XR_ITS ---
EXAMINATION: XR lumbar spine 2-3V DATE: 06/02/2023 12:03 INDICATION: Dorsalgia. TECHNIQUE: 3 views of lumbar spine were obtained. COMPARISON: None. FINDINGS: There is 18 degrees levoscoliosis of lumbar spine. Vertebral body heights are normal. There is moderately decreased disc height at L2-L3 and mildly decreased disc height at L3-L4, L4-L5, and L 5-S1. There is multilevel facet joint osteoarthritis, severe in lower lumbar spine. IMPRESSION: 1. Moderate lumbar spondylosis. 2. Lumbar levoscoliosis. Reviewed, dictated and finalized at location A.
== END 2023-06-02 11:44 | disposition home or self-care (01) ==
LOC: ANHIMG 11:48
PROVIDERS: PCP Family Medicine; Visit Provider Family Medicine
DX: M70.60 Trochanteric bursitis, unspecified hip (principal); M16.0 Bilateral primary osteoarthritis of hip; M47.896 Other spondylosis, lumbar region
CPT/HCPCS: 72100; 73521

== ENCOUNTER → 2023-07-17 15:52 | Outpatient (CLI) | payer MEDICARE, OTHER, SELFPAY ==
--- NOTE | ~2023-07-17 | MR_ITS ---
EXAMINATION: MR femur RT wo con DATE: 07/17/2023 16:29 INDICATION: Right femur pain TECHNIQUE: Magnetic resonance imaging (MRI) of the right femur was performed without intravenous cont rast. A marker was placed over the site of maximal pain at the lateral mid right thigh. Sequences in cluded axial, sagittal and coronal T1-weighted FSE and fluid sensitive FSE STIR. The contralateral le ft thigh is included on the coronal images. COMPARISON: Right femur radiographs dated 07/10/2023 FINDINGS: There is normal bone marrow signal throughout with no fracture, reactive edema or pathologic marrow r eplacing process. No periostitis. Moderate symmetric muscle bulk and signal in both thighs. The visua lized portion of the tendons appear normal. Neurovascular structures in the right thigh are normal. N o right hip or knee joint effusion. No pathologically enlarged inguinal lymphadenopathy. IMPRESSION: 1. Unremarkable MRI of the right thigh with no etiology for the reported lateral sided mid thigh pain . Reviewed, dictated and finalized at location A. IMPRESSION: 1. Unremarkable MRI of the right thigh with no etiology for the reported latera l sided mid thigh pain.
== END ==
PROVIDERS: PCP Family Medicine; Visit Provider Nurse Practitioner Family
DX: M89.8X5 Other specified disorders of bone, thigh (principal); M79.651 Pain in right thigh
CPT/HCPCS: 73718

== ENCOUNTER → 2023-10-25 10:53 | Outpatient (CLI) | payer MEDICARE, OTHER, SELFPAY ==
--- NOTE | ~2023-10-25 | DEXA_ITS ---
Bone Density Report Name: JENNY SKINNER Age: 78 Sex: Female Ethnicity: White Date of : 1945 Indication: osteopenia; height loss; postmenopausal Referring Provider: PURVI, SAVANNAH Study: Bone densitometry was performed. Exam Date: October 25, 2023 Accession number: [id number] Bone Density: Region BMD T-score Z-score Classification AP Spine (L1, L2, L3) 0.882 -1.2 1.2 Osteopenia Femoral Neck (Left) 0.637 -1.9 0.3 Osteopenia Total Hip (Left) 0.780 -1.3 0.6 Osteopenia Femoral Neck (Right) 0.711 -1.2 0.9 Osteopenia Total Hip (Right) 0.845 -0.8 1.1 Normal Total Hip Mean 0.813 -1.1 0.9 Osteopenia World Health Organization criteria for BMD impression classify patients as: Normal (T-score at or above -1.0), Osteopenia (T-score between -1.0 and -2.5), or Osteoporosis (T-score at or below -2.5). 10-year Fracture Risk(1): Major Osteoporotic Fracture 14% Hip Fracture 3.4% Reported Risk Factors: [place] (), Neck BMD=0.637, BMI=24.8 (1) FRAX(R) Version 3.08. Fracture probability calculated for an untreated patient. Fracture probability may be lower if the patient has received treatment. Previous Exams: Region Exam Age BMD T-score BMD Change BMD Change Date g/cm2 vs Baseline vs Previous AP Spine(L1, L2, L3) 10/25/2023 78 0.882 -1.2 -0.002 0.008 08/31/2021 75 0.874 -1.3 -0.010 0.020 04/05/2019 73 0.854 -1.5 -0.030* -0.024* 07/05/2012 66 0.878 -1.3 -0.006 0.037* 04/12/2010 64 0.841 -1.6 -0.043* -0.043* 10/17/2008 63 0.885 -1.2 0.000 0.030* 03/07/2007 61 0.854 -1.5 -0.030* -0.030* 12/22/2004 59 0.884 -1.2 Total Hip(Left) 10/25/2023 78 0.780 -1.3 -0.168* -0.011 08/31/2021 75 0.791 -1.2 -0.157* -0.022 04/05/2019 73 0.814 -1.1 -0.134* -0.064* 07/05/2012 66 0.878 -0.5 -0.070* 0.076* 04/12/2010 64 0.801 -1.2 -0.146* -0.017 10/17/2008 63 0.818 -1.0 -0.130* 0.015 03/07/2007 61 0.803 -1.1 -0.144* -0.144* 12/22/2004 59 0.948 0.0 Total Hip(Right) 10/25/2023 78 0.845 -0.8 -0.101* 0.023 08/31/2021 75 0.822 -1.0 -0.124* -0.004 04/05/2019 73 0.826 -0.9 -0.120* -0.045* 07/05/2012 66 0.871 -0.6 -0.075* 0.055* 04/12/2010 64 0.816 -1.0 -0.130* -0.016 10/17/2008 63 0.832 -0.9 -0.114* 0.011 03/07/20
--- NOTE | ~2023-10-25 | MM_ITS ---
EXAMINATION: MM screening [facility] BI w nneka HISTORY: Screening TECHNIQUE: Craniocaudal and mediolateral oblique 3-D tomosynthesis images were obtained and synthetic 2-D images were generated. CAD analysis was submitted and interpreted. COMPARISON: Comparison to multiple prior studies sequentially, with oldest reviewed study dated 07/10. BREAST PARENCHYMAL COMPOSITION: The breasts are heterogeneously dense, which may obscure small masses FINDINGS: There is no evidence of suspicious mass, calcification, or architectural distortion to sugg est malignancy in either breast. There has been no suspicious interval change. IMPRESSION: 1. No mammographic evidence of malignancy. 2. Recommend routine screening mammography in one year. BI-RADS Category 1: Negative Reviewed, dictated and finalized at location A. AY GUARD
== END ==
PROVIDERS: PCP Family Medicine; Visit Provider Nurse Practitioner
DX: Z12.31 Encounter for screening mammogram for malignant neoplasm of breast (principal); Z78.0 Asymptomatic menopausal state; M85.88 Other specified disorders of bone density and structure, other site; M85.852 Other specified disorders of bone density and structure, left thigh; M85.851 Other specified disorders of bone density and structure, right thigh
CPT/HCPCS: 77063; 77067; 77080

== ENCOUNTER 2023-11-15 07:40 | Outpatient (CLI) | payer MEDICARE, OTHER, SELFPAY ==
[2023-11-15 08:37] LABS: Basophils Percent Auto 0.8 % (0.2-1.2); Eosinophils Absolute Auto 0.3 K/mm3 (0-0.3); Hematocrit 42.8 % (37.0-47.0); Hemoglobin 13.7 g/dL (12.0-15.0); Immature Granulocyte Absolute 0.01 K/mm3 (0.00-0.031); Immature Granulocyte Percent A 0.2 % (0-0.5); Lymphocytes Absolute Auto 1.34 K/mm3 (0.9-3.2); Lymphocytes Percent Auto 26.6 % (18.3-44.2); Mean Corpuscular Hemoglobin 30.5 pg (26-34); Mean Corpuscular Volume 95.3 fl (80-100); Mean Platelet Volume 9.1 fl (7.4-10.4); Monocytes Absolute Auto 0.4 K/mm3 (0.1-0.6); Monocytes Percent Auto 7.6 % (2.6-8.5); Neutrophils Percent Auto 59.8 % (45.5-73.1); Platelet Count Result 292 k/mm3 (150-375); Red Blood Count 4.49 M/mm3 (4.2-5.4); Red Cell Distribution Width 12.7 % (11.5-14.5)
[2023-11-15 09:01] LABS: Alanine Aminotransferase 18 U/L (6-35); Albumin Level 4.2 g/dL (3.5-5.1); Alkaline Phosphatase 78 U/L (38-126); Anion Gap 3 mmol/L (8-16); Aspartate Amino Transferase 25 U/L (14-36); Bilirubin,Total 0.4 mg/dL (0.2-1.3); Blood Urea Nitrogen 19 mg/dL (7-17); Calcium 9.7 mg/dL (8.4-10.2); Carbon Dioxide 31 mmol/L (22-30); Chloride 105 mmol/L (98-107); Cholesterol 199 mg/dL (0-200); Estimated Glomerular Filt Rate > 60; Glucose 103 mg/dL (65-110); HDL Direct 72 mg/dL; Sodium 139 mmol/L (137-145); Triglycerides 79 mg/dL (<150)
[2023-11-15 09:12] LABS: LDL Cholesterol Direct 98 mg/dL
[2023-11-15 09:18] LABS: Erythrocyte Sedimentation Rate 15 mm/hr (0-20)
[2023-11-18 19:11] LABS: ANA Cascade Screen Negative (Negative)
== END 2023-11-15 07:41 | disposition home or self-care (01) ==
LOC: ANHLAB 07:45
PROVIDERS: PCP Family Medicine; Visit Provider Family Medicine
DX: R53.1 Weakness (principal); R53.82 Chronic fatigue, unspecified; I10 Essential (primary) hypertension; F41.1 Generalized anxiety disorder; F51.04 Psychophysiologic insomnia
CPT/HCPCS: 36415; 80053; 80061; 82607; 84443; 85025; 85652; 86038; 86225; 86235; 86364

== ENCOUNTER 2024-10-28 12:24 | Outpatient (CLI) | payer MEDICARE, OTHER, SELFPAY ==
--- NOTE | ~2024-10-28 | MM_ITS ---
EXAMINATION: MM screening [facility] BI w nneka HISTORY: Screening TECHNIQUE: Craniocaudal and mediolateral oblique 3-D tomosynthesis images were obtained and synthetic 2-D images were generated. CAD analysis was submitted and interpreted. COMPARISON: Comparison to multiple prior studies sequentially, with oldest reviewed study dated 08/09. BREAST PARENCHYMAL COMPOSITION: Not dense: There are scattered areas of fibroglandular density. FINDINGS: There is no evidence of suspicious mass, calcification, or architectural distortion to sugg est malignancy in either breast. There has been no suspicious interval change. IMPRESSION: 1. No mammographic evidence of malignancy. 2. Recommend routine screening mammography in one year. BI-RADS Category 1: Negative Reviewed, dictated and finalized at location A. NICAL ADJUSTER
== END 2024-10-28 12:25 | disposition home or self-care (01) ==
LOC: MICIMG 12:26
PROVIDERS: PCP Obstetrics & Gynecology Gynecology; Visit Provider Obstetrics & Gynecology Gynecology
DX: Z12.31 Encounter for screening mammogram for malignant neoplasm of breast (principal)
CPT/HCPCS: 77063; 77067

== ENCOUNTER 2024-10-31 10:01 | Outpatient (CLI) | payer MEDICARE, OTHER, SELFPAY ==
[2024-10-31 10:29] LABS: Basophils Absolute Auto 0.1 K/mm3 (0.0-0.1); Basophils Percent Auto 0.8 % (0.2-1.2); Eosinophils Absolute Auto 0.2 K/mm3 (0-0.3); Eosinophils Percent Auto 3.7 % (0-4.4); Hematocrit 41.3 % (37.0-47.0); Hemoglobin 13.2 g/dL (12.0-15.0); Immature Granulocyte Absolute 0.02 K/mm3 (0.00-0.031); Immature Granulocyte Percent A 0.3 % (0-0.5); Lymphocytes Absolute Auto 1.34 K/mm3 (0.9-3.2); Lymphocytes Percent Auto 22.7 % (18.3-44.2); Mean Corpuscular Volume 93.9 fl (80-100); Monocytes Absolute Auto 0.4 K/mm3 (0.1-0.6); Monocytes Percent Auto 6.6 % (2.6-8.5); Neutrophils Absolute Auto 3.9 K/mm3 (1.3-6.7); Neutrophils Percent Auto 65.9 % (45.5-73.1); Platelet Count Result 318 k/mm3 (150-375); White Blood Count 5.9 K/mm3 (4.5-10.0)
[2024-10-31 10:43] LABS: Alanine Aminotransferase 19 U/L (6-35); Albumin Level 4.5 g/dL (3.5-5.1); Alkaline Phosphatase 89 U/L (38-126); Anion Gap 9 mmol/L (4-12); Aspartate Amino Transferase 27 U/L (14-36); Bilirubin,Total 0.5 mg/dL (0.2-1.3); Blood Urea Nitrogen 17 mg/dL (7-17); Calcium 9.4 mg/dL (8.4-10.2); Carbon Dioxide 28 mmol/L (22-30); Chloride 104 mmol/L (98-107); Cholesterol 170 mg/dL (0-200); Estimated Glomerular Filt Rate > 60; Glucose 104 mg/dL (65-110); HDL Direct 62 mg/dL; Potassium 4.5 mmol/L (3.4-5.0); Sodium 141 mmol/L (137-145); Triglycerides 100 mg/dL (<150)
[2024-10-31 10:54] LABS: LDL Cholesterol Direct 75 mg/dL
== END 2024-10-31 10:02 | disposition home or self-care (01) ==
LOC: ANHLAB 10:02
PROVIDERS: PCP Family Medicine; Visit Provider Physician Assistant
DX: E78.2 Mixed hyperlipidemia (principal); I10 Essential (primary) hypertension
CPT/HCPCS: 36415; 80053; 80061; 85025

== ENCOUNTER 2024-12-25 01:04 | Day surgery (SDC) | payer MEDICARE, OTHER, SELFPAY ==
[2024-12-19 13:07] VITALS: BMI 28.8
--- OUTSIDE RECORDS SUMMARY | 2024-12-25 01:07 | XMS_ITS | Continuity of Care Document ---
Author Organization [facility] Address [address] [place] [address] [place] [address] Phone Care Team Providers [employer] Name Role Phone [facility] [employer] Unavailable Unavail able Tennille Jenkins Unavailable Unavailable Advance Directives Directive Yes / No Effective Date File Name No Information Encounters Encounter Description Practice Location Reason(s) For Visit Diagnoses Date Provider Providers Copied on Encounter [facility], [address] [place], [place], [id number], [place] tel:[phone] [facility] No Information 9-200 4 Optical Shop [employer] [address] [facility], [address], [place], [place], [id number] , [place]. [phone] Consulting Provider: Tennille Jenkins, [address] [place] [address], [address]. tel:[phone] Family History Family Member Type Diagnosis Age At Onset No Information Payers Payer name Insurance type Covered democrat ID Authoriza tion(s) No Information Social History Type Description Quantity Date Captured Comments Sex Female Smoking Status No Information Chief Complaint And Reason For Visit No Information Reason For Referral Reason For Referral No Information History Of Present Illness Encounter Date Complaint History Of Prese nt Illness No Information Functional Status Date Functional Assessmen t No Information Instructions Date Instruction Additional Infor mation No Information Assessments Type Assessment Date No Information Patient Care Teams Name Effective Dates (start - stop) Status Members No Information
[2024-12-25 11:59] VITALS: BP 145/89; PULSE 118; RESP 16; TEMP 36.2; O2SAT 94; BMI 28.8
[2024-12-25] MEDS: LACTATED RINGERS 1,000 ML 150 ML IV CONT (12:07)
--- NOTE | 2024-12-25 12:43 | P.PNAN_ITS ---
Anes - Initial Pre Proc Eval Procedure: Operation Date: 12/25/24 13:00 Proposed Procedures p Colonoscopy - Jorgito Tobias MD Date/Time: 12/25/24 12:43 Surgeon: Jorgito Tobias MD Pre Op Diagnosis: Other fecal abnormalities Patient Data Age: 79 Gender: F Height: 1.7 m Weight: 83.4 kg Last Vital Signs Temp 97.1 F L 12/25/24 11:59 Pulse 118 H 12/25/24 11:59 Resp 16 12/25/24 11:59 BP 145/89 H 12/25/24 11:59 Pulse Ox 94 12/25/24 11:59 O2 Del Method Room Air 12/25/24 11:59 Allergies Allergy/AdvReac Type Severity Reaction Status Date / Time No Known Allergies Allergy Verified 12/25/24 11:57 Home Medications ?Medication ?Instructions ?Recorded ?Confirmed ?Type cetirizine 10 mg tablet (Zyrtec) 10 mg PO DAILY 09/12/21 12/25/24 History triamcinolone acetonide 0.1 % 1 applic topical BID #30 grams 04/23/24 12/25/24 Rx topical cream lisinopril 40 mg tablet See Rx Instructions .Route 05/07/24 12/25/24 Rx .COMPLEX #100 tabs ropinirole 0.5 mg tablet See Rx Instructions .Route 08/14/24 12/25/24 Rx .COMPLEX #180 tabs simvastatin 10 mg tablet See Rx Instructions .Route 10/30/24 12/25/24 Rx .COMPLEX #90 tabs gabapentin 300 mg capsule 600 mg (2 x 300 mg) PO QHS #60 caps 11/11/24 12/19/24 Rx amlodipine 10 mg tablet See Rx Instructions .Route 12/16/24 12/25/24 Rx .COMPLEX #100 tabs Patient hx anesthesia problems: none Family hx anesthesia problems: none Results Review: All pre-operative results and documents have been reviewed as part of the pre-operative evaluation. ON LICENSE OF [facility] Past Medical History Medical History Pain in femur Chronic insomnia Back pain Hip pain Trochanteric bursitis Pruritus Seborrheic keratosis, inflamed Insomnia Tachycardia Vaginal adhesions, acquired Vaginal adenosis BILL (generalized anxiety disorder) Osteoporosis Hypercholesteremia Hypertension Surgical History Surgical History No significant past surgical history Family History Family History Father Hypertension Heart disease HLD (hyperlipidemia) Mother , Wendy reports mother would not go to the MD Unknown family medical history Social History Social History Social History: Smoking status: Never smoker Tobacco type: cigarettes Second hand tobacco smoke exposure: No Alcohol intake: never Drinks per week: 2 Substance use: never Substance use type: does not use Do You Feel Safe in your Home?: Yes Lack of Transportation: No Lack of Food: Never True Current Housing: I Have Housing Concerned About Future Housing: No Difficulty Paying Gas/Electric Bills: No Difficulty Paying for Meds: No Currently Unemployed: YES Education: Decline to Answer Difficulty w/ Childcare or Family Care: No Living arrangements: with family Occupation/Education: retired 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 Gender identity (if verbalized by the patient): Female Sexual Orientation (if Verbalized by the Patient): Straight or Heterosexual Spiritual care concerns: No Anes - Eval Final PreProcedure Day of Procedure 12/25/24 12:43 Patient weight: normal Heart: regular rate and rhythm Lungs: clear to auscultation Airway: Mallampati scale class II Neurological: alert and oriented Last oral intake: >/= 8 hours ASA classification: II Emergent: no Anesthetic plan: proceed Anesthesia type and monitoring: general GIVS and standard monitoring Results Review: All pre-operative results and documents have been reviewed as part of the pre- operative evaluation. Informed Consent: The patient's anesthetic plan and its attendant risks and benefits were discussed with the patient/family/POA. Questions were solicited and answers provided to the satisfaction of the patient/family/POA.
--- NOTE | 2024-12-25 13:27 | P.HP_ITS ---
History of Present Illness History of Present Illness Consent: Risks, benefits, and alternatives have been discussed and questions answered. Patient agrees to proceed with procedure. Chief complaint: Other fecal abnormalities Narrative: Wendy Baird is a 79 year old female here for first colonoscopy, + cologuard Review of Systems Review of Systems: All systems reviewed & are unremarkable except as noted in HPI and below PMFSH Past Medical History Medical History (Updated 12/25/24 @ 13:27 by Jorgito Tobias MD) Positive colorectal cancer screening using Cologuard test Pain in femur Chronic insomnia Back pain Hip pain Trochanteric bursitis Pruritus Seborrheic keratosis, inflamed Insomnia Tachycardia Vaginal adhesions, acquired Vaginal adenosis BILL (generalized anxiety disorder) Osteoporosis Hypercholesteremia Hypertension Surgical History Surgical History No significant past surgical history Family History Family History Father Hypertension Heart disease HLD (hyperlipidemia) Mother , Wendy reports mother would not go to the MD Unknown family medical history Social History Social History Social History: Smoking status: Never smoker Tobacco type: cigarettes Second hand tobacco smoke exposure: No Alcohol intake: never Drinks per week: 2 Substance use: never Substance use type: does not use Do You Feel Safe in your Home?: Yes Lack of Transportation: No Lack of Food: Never True Current Housing: I Have Housing Concerned About Future Housing: No Difficulty Paying Gas/Electric Bills: No Difficulty Paying for Meds: No Currently Unemployed: YES Education: Decline to Answer Difficulty w/ Childcare or Family Care: No Living arrangements: with family Occupation/Education: retired 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 Gender identity (if verbalized by the patient): Female Sexual Orientation (if Verbalized by the Patient): Straight or Heterosexual Spiritual care concerns: No Meds Home Medications and Allergies Home Medications ?Medication ?Instructions ?Recorded ?Confirmed ?Type cetirizine 10 mg tablet (Zyrtec) 10 mg PO DAILY 09/12/21 12/25/24 History triamcinolone acetonide 0.1 % 1 applic topical BID #30 grams 04/23/24 12/25/24 Rx topical cream lisinopril 40 mg tablet See Rx Instructions .Route 05/07/24 12/25/24 Rx .COMPLEX #100 tabs ropinirole 0.5 mg tablet See Rx Instructions .Route 08/14/24 12/25/24 Rx .COMPLEX #180 tabs simvastatin 10 mg tablet See Rx Instructions .Route 10/30/24 12/25/24 Rx .COMPLEX #90 tabs gabapentin 300 mg capsule 600 mg (2 x 300 mg) PO QHS #60 caps 11/11/24 12/19/24 Rx amlodipine 10 mg tablet See Rx Instructions .Route 12/16/24 12/25/24 Rx .COMPLEX #100 tabs Allergies Allergy/AdvReac Type Severity Reaction Status Date / Time No Known Allergies Allergy Verified 12/25/24 11:57 Vital Signs Vital Signs - 24 hr 12/25/24 11:59 Temperature 97.1 F L Pulse Rate 118 H Respiratory Rate 16 Blood Pressure 145/89 H Pulse Oximetry 94 Oxygen Delivery Room Air Exam Const: General: comfortable and no acute distress HENMT: Face/Nose/Sinus: Normal nares present Eyes: General: appearance normal, both eyes and all related structures Neck: Neck: no JVD Resp: Auscultation: clear to auscultation bilaterally Cardio: Rate: regular rate Rhythm: regular rhythm GI: Inspection: non-distended GI Palp: Yes Soft to palpation Skin: General skin exam: normal color Neuro: General: gait normal Speech: normal speech Extrem: General: normal to inspection Psych: Mental Status: mental status grossly normal Assessment and Plan Assessment and plan (1) Positive colorectal cancer screening using Cologuard test: Code(s): R19.5 - Other fecal abnormalities Status: Acute Assessment and Plan: colonoscopy
[2024-12-25 13:46] VITALS: BP 127/59; PULSE 90; RESP 25; O2SAT 97
[2024-12-25 13:56] VITALS: BP 132/71; PULSE 86; RESP 22; O2SAT 97
[2024-12-25 14:06] VITALS: BP 117/65; PULSE 85; RESP 21; O2SAT 98
== END 2024-12-25 14:16 | disposition home or self-care (01) ==
PROVIDERS: PCP Family Medicine; Referring Provider Family Medicine; Visit Provider Internal Medicine Gastroenterology
PROC: 0DJD8ZZ Inspection of Lower Intestinal Tract, Via Natural or Artificial Opening Endoscopic (ICD-10-PCS; CPT 45378; principal; 2024-12-25 13:00)
DX: K64.8 Other hemorrhoids (principal); I10 Essential (primary) hypertension; E78.00 Pure hypercholesterolemia, unspecified; M81.0 Age-related osteoporosis without current pathological fracture; F51.04 Psychophysiologic insomnia; F41.9 Anxiety disorder, unspecified; R00.0 Tachycardia, unspecified; Z82.49 Family history of ischemic heart disease and other diseases of the circulatory system
CPT/HCPCS: 45378; J2003; J2704; J7120